=== PATIENT | male | born 1975 | race Caucasian/White ===

== ENCOUNTER 2016-03-27 06:47 | Emergency (ER) | payer OTHER ==
[~2016-03-27] VITALS: Ht 177.8 cm; Wt 99.8 kg
[2016-03-27] MEDS ORDERED: HYDROCODONE/APAP 5/325MG 1 EACH TABLET ONE (07:23)
[2016-03-27] MEDS ORDERED: HYDROCODONE/APAP 5/325MG 1 EACH TABLET PO ONE (07:30)
[2016-03-27 08:26] VITALS: BP 118/84
== END 2016-03-27 08:26 | disposition home or self-care (01) ==
LOC: ER 06:50
DX: K08.89 Other specified disorders of teeth and supporting structures (principal)
CPT/HCPCS: A4606; Z7610